=== PATIENT | male | born 1970 | race Hispanic/Latino ===

== ENCOUNTER 2024-04-15 10:46 | Day surgery (SDC) | payer OTHER ==
[2024-04-14 09:13] LABS: Absolute Eosinophils 0.2 K/uL (0-0.5); Absolute Lymphocytes (CBC) 2.7 K/uL (0.7-4.9); Absolute Monocytes 0.7 K/uL (0.1-1.3); Absolute Neutrophil 6.3 K/uL (1.8-8.0); Basophils % 0.5 % (0-1.3); Eosinophils % 1.8 % (0-4.4); Hematocrit 41.5 % (39.6-49.0); Hemoglobin 14.2 g/dL (13.6-17.9); Lymphocytes % 27.3 % (15.3-44.8); MCH 31.4 pg (27.0-35.0); MCHC 34.1 g/dL (32.0-36.0); MPV 7.5 fL (7.6-11.3); Monocytes % 6.8 % (3.3-12.3); Neutrophils % 63.6 % (41.7-73.7); Platelets 284 thou/uL (152-406); RBC Red Blood Cell Count 4.51 M/uL (4.33-5.43); Red Cell Distribution Width 14.3 % (12.1-15.2)
[2024-04-14 09:28] LABS: Anion Gap 6.5 mEq/L (5.0-15.0); Potassium 4.5 mEq/L (3.5-5.1)
--- NOTE | 2024-04-14 12:06 | EKG ---
Test Date: 2024-04-14 Test Time: 08:22:22 Decorating Supervisor: JOE MEASUREMENT RESULTS: Intervals: Rate: 64 ND: 170 QRSD: 98 QT: 386 QTc: 398 [place]: P: 60 ND: 170 QRS: 94 T: 79 INTERPRETIVE STATEMENTS: Normal sinus rhythm Rightward axis Borderline ECG No previous ECG available for comparison Electronically Signed On 04-14-24 12:05:39 CDT by Ariel Sagastume
[2024-04-15] MEDS: Ringers Lactate 1,000 ML IV ONE (11:20)
[2024-04-15] MEDS ORDERED: propofoL 200 MG/20 ML VIAL IV ONE (11:22)
[2024-04-15] MEDS ORDERED: ONDANSETRON 4 MG/2 ML VIAL ONE (11:22)
[2024-04-15] MEDS ORDERED: ROCURONIUM 50 MG/5 ML VIAL IV ONE (11:23)
[2024-04-15] MEDS ORDERED: FENTANYL CITR 100 MCG/2 ML ONE (11:23)
[2024-04-15] MEDS ORDERED: MIDAZOLAM HCL 2 MG/2 ML INJ ONE (11:23)
[2024-04-15] MEDS ORDERED: LIDOCAINE 2% MPF 5 ML VIAL ONE (11:23)
[2024-04-15] MEDS ORDERED: HYDROMORPHONE HCL 2 MG/ML inj ONE (12:22)
[2024-04-15] MEDS: CEFAZOLIN SODIUM 2 GM/VIAL ONE (12:45)
[2024-04-15] MEDS ORDERED: dexAMETHasone 10 MG/ML VIAL ONE ×3 (12:47→13:56)
[2024-04-15] MEDS ORDERED: EPHEDRINE SULF 50 MG/ML VIAL ONE (12:48)
[2024-04-15] MEDS: LIDOCAINE HCL/EPINEPHRINE 20 ML MDV ONE (13:09)
[2024-04-15] MEDS ORDERED: ROPLVACAINE HCL ONE (13:48)
[2024-04-15] MEDS ORDERED: NEOSTIGMINE 1 MG/ML -10 ML VIAL ONE (13:53)
[2024-04-15] MEDS ORDERED: GLYCOPYRROLATE 0.2 MG/ML SYR ONE (13:53)
[2024-04-15] MEDS ORDERED: EPINEPHRINE 1 MG/ML VIAL ONE (13:56)
--- NOTE | 2024-04-15 14:02 | P.OP ---
Preoperative diagnosis: Ventral Incisional Incarcerated Hernia Postoperative diagnosis: Ventral Incisional Incarcerated Hernia Primary procedure: Laparoscopic Ventral Incisional Incarcerated Hernia Repair with mesh Anesthesia: GETA + Local Estimated blood loss: <5cc Specimen: Hernia Contents - Adipose Findings: ~ 2cm ventral incisional incarcerated hernia Complications: None Implants: Bard Ventralite ST 11.4cm Round mesh, Sorbafix x 45 tacks Transferred to: Recovery Room Condition: Good
[2024-04-15] MEDS: HYDROMORPHONE HCL 1 MG/ML INJ ONE ×2 (14:49→15:12)
--- NOTE | 2024-04-15 15:17 | OP ---
Date of Procedure: 04/15/2024 Surgeon: Jaciel King MD, Preoperative Diagnosis: Ventral incisional incarcerated hernia. Postoperative Diagnosis: Ventral incisional incarcerated hernia. Procedure Performed: Laparoscopic ventral incisional incarcerated hernia repair with mesh. Anesthesia: General endotracheal plus local with 1% lidocaine. Estimated Blood Loss: 5 cc. Specimen: Hernia contents which is adipose tissue. Findings: Approximately 2 cm ventral incisional incarcerated hernia. Complications: None. Implants: Bard Ventralight ST mesh with Echo Positioning System, 11.4 cm round mesh utilized, SorbaF ix absorbable fixation tacks x45. Disposition: Patient transferred to recovery room in good condition. Procedure In Detail: After informed consent was obtained, patient was brought to the operating room, prepped and draped in the usual sterile fashion. After adequate anesthesia was achieved, insufflati on was obtained to 15 mmHg, at this time, after making a left upper quadrant incision down to subcuta neous tissues. An optical trocar was used to enter the abdomen safely. At this point, additional tr ocars were placed in the left mid abdomen. This was similarly anesthetized and sharply incised and a 12 mm trocar was placed under direct visualization without incident or complication. Patient was ro lled slightly away and then I proceeded to use a LigaSure device to take down significant anterior ad ipose tissue from the omentum to the anterior abdominal wall, which required approximately 45 minutes of adhesiolysis taking this down, ultimately reducing an incarcerated adipose containing hernia with minimal adipose tissue necrosis, which was removed and sent off for pathologic examination as hernia contents. After this was completely dissected free, the hernia sac was cleaned and found to be appr oximately 2 cm in size. At this point, I brought in the Endo stitch with a 0 V-Loc suture and closed it in a running fashion with good approximation of the tissues imbricating the hernia sac with multi ple passes. At this point, after the hernia defect was closed, I deployed 11.4 cm Bard Ventralight S T mesh with Echo Positioning System at the infraumbilical position after grasping it with a Karlos- Ready To Travel suture passer. I deployed the balloon system. I then secured the mesh to the anterior abdomi nal wall with a single crown of SorbaFix absorbable fixation tacks. I then removed the balloon deplo yment system, found it to be intact on the back table and used a total of 45 screws in a double crown type orientation to secure the mesh to the anterior abdominal wall with good apposition of mesh to t he abdominal wall without incident or complication. At this point, the 12 mm trocar site was closed using a Karlos-Efra suture passer with 0 Vicryl in an interrupted fashion with good approximation of tissues. The abdomen was then desufflated under direct visualization without incident or complic ation. Remainder of the trocars were removed. All skin incisions were then copiously irrigated and closed with a 4-0 Monocryl in a running fashion. Dermabond was placed over top. The patient tolerat ed the procedure without incident or complication. Transferred to PACU in good condition. All count s were correct at the end of the case. ALBERT/KAMLESH Voice ID: [id number] Report ID: [id number]
[2024-04-15 15:29] VITALS: O2SAT 100
[2024-04-15] MEDS: HYDROCODONE/APAP 7.5/325 MG TAB ONE (16:05)
[2024-04-15 17:17] VITALS: BP 149/73; TEMP 98.2
== END 2024-04-15 17:09 | disposition home or self-care (01) ==
LOC: OR 10:46
PROVIDERS: ATTEND Surgery
PROC: 0WUF4JZ Supplement Abdominal Wall with Synthetic Substitute, Percutaneous Endoscopic Approach (ICD-10-PCS; principal; 2024-04-15 12:30)
DX: K43.0 Incisional hernia with obstruction, without gangrene (principal)
CPT/HCPCS: 36415; 80048; 85025; 93005; C1781; J0171; J1100; J1170; J2001; J2250; J2405; J2704; J2710; J3010; J7120